=== PATIENT | female | born 1950 | race Caucasian/White ===

== ENCOUNTER → 2023-10-20 11:07 | Outpatient (REF) | payer MEDICARE, OTHER, SELFPAY ==
[2023-10-20 15:21] LABS: ALT (SGPT) 32 U/L (0-35); AST (SGOT) 42 U/L (14-36); Albumin 4.8 g/dl (3.5-5.0); Alkaline Phosphatase 79 U/L (38-126); Blood Urea Nitrogen 17 mg/dl (7-17); Calcium 10.1 mg/dl (8.4-10.2); Carbon Dioxide 25 mmol/L (22-30); Chloride 100 mmol/L (98-107); Glucose 82 mg/dl (70-99); Potassium 4.4 mmol/L (3.5-5.1); Sodium 138 mmol/L (135-145); Total Bilirubin 0.8 mg/dl (0.2-1.3); Total Protein 7.7 g/dl (6.3-8.2); eGFR > 60.00
== END ==
LOC: HWLAB 11:07
PROVIDERS: ATTENDING PHYSICIAN Internal Medicine Cardiovascular Disease; FAMILY PHYSICIAN Family Medicine
DX: I50.32 Chronic diastolic (congestive) heart failure (principal)
CPT/HCPCS: 36415; 80053

== ENCOUNTER → 2024-03-27 12:58 | Outpatient (REF) | payer MEDICARE, OTHER, SELFPAY | LOC: RAD 12:58 | PROVIDERS: ATTENDING PHYSICIAN Physician Assistant Medical; FAMILY PHYSICIAN Family Medicine | DX: J20.9 Acute bronchitis, unspecified (principal); R05.1 Acute cough | CPT/HCPCS: 71046 ==

== ENCOUNTER → 2024-05-17 08:48 | Outpatient (REF) | payer MEDICARE, OTHER, SELFPAY ==
[2024-05-17 12:32] LABS: ALT (SGPT) 38 U/L (0-35); AST (SGOT) 51 U/L (14-36); Albumin 4.8 g/dl (3.5-5.0); Alkaline Phosphatase 70 U/L (38-126); Blood Urea Nitrogen 20 mg/dl (7-17); Carbon Dioxide 27 mmol/L (22-30); Chloride 101 mmol/L (98-107); Glucose 94 mg/dl (70-99); HDL Cholesterol 94 mg/dl; LDL Cholesterol, Calculated 61 mg/dl; Potassium 4.6 mmol/L (3.5-5.1); Sodium 140 mmol/L (135-145); Total Cholesterol 169 mg/dl (50-199); Total Protein 7.4 g/dl (6.3-8.2); Triglyceride 74 mg/dl (10-149); Very Low Density Lipoprotein 14 mg/dl (0-30); eGFR > 60.00
== END ==
LOC: HWLAB 08:48
PROVIDERS: ATTENDING PHYSICIAN Internal Medicine Cardiovascular Disease; FAMILY PHYSICIAN Family Medicine
DX: I50.32 Chronic diastolic (congestive) heart failure (principal); Z95.5 Presence of coronary angioplasty implant and graft
CPT/HCPCS: 36415; 80053; 80061

== ENCOUNTER → 2024-08-03 09:43 | Outpatient (REF) | payer MEDICARE, OTHER, SELFPAY ==
[2024-08-03 14:05] LABS: ALT (SGPT) 31 U/L (0-35); Albumin 4.6 g/dl (3.5-5.0); Alkaline Phosphatase 71 U/L (38-126); Blood Urea Nitrogen 15 mg/dl (7-17); Calcium 9.9 mg/dl (8.4-10.2); Carbon Dioxide 26 mmol/L (22-30); Chloride 102 mmol/L (98-107); Glucose 92 mg/dl (70-99); HDL Cholesterol 92 mg/dl; LDL Cholesterol, Calculated 50 mg/dl; Potassium 4.2 mmol/L (3.5-5.1); Sodium 141 mmol/L (135-145); Total Bilirubin 0.8 mg/dl (0.2-1.3); Total Cholesterol 165 mg/dl (50-199); Total Protein 7.2 g/dl (6.3-8.2); Triglyceride 118 mg/dl (10-149); Very Low Density Lipoprotein 23 mg/dl (0-30); eGFR > 60.00
[2024-08-03 16:58] LABS: AST (SGOT) 35 U/L (14-36)
== END ==
LOC: HWLAB 09:43
PROVIDERS: ATTENDING PHYSICIAN Internal Medicine Cardiovascular Disease; FAMILY PHYSICIAN Family Medicine
DX: I50.32 Chronic diastolic (congestive) heart failure (principal)
CPT/HCPCS: 36415; 80053; 80061

== ENCOUNTER → 2024-10-11 10:17 | Outpatient (REF) | payer MEDICARE, OTHER, SELFPAY | LOC: HWRCS 10:17 | PROVIDERS: ATTENDING PHYSICIAN Internal Medicine Cardiovascular Disease; FAMILY PHYSICIAN Family Medicine | DX: I50.32 Chronic diastolic (congestive) heart failure (principal) | CPT/HCPCS: 93306 ==

== ENCOUNTER → 2025-05-22 12:33 | Outpatient (REF) | payer MEDICARE, OTHER, SELFPAY | LOC: HWWDC 12:33 | PROVIDERS: ATTENDING PHYSICIAN Obstetrics & Gynecology Gynecology; FAMILY PHYSICIAN Family Medicine | DX: Z12.31 Encounter for screening mammogram for malignant neoplasm of breast (principal) | CPT/HCPCS: 77063; 77067 ==

== ENCOUNTER → 2025-05-24 08:35 | Outpatient (REF) | payer MEDICARE, OTHER, SELFPAY ==
[2025-05-24 09:59] LABS: Hematocrit 43.5 % (37.0-47.0); Hemoglobin 15.1 g/dL (12.0-16.0); Mean Corp Hgb Conc. 34.7 g/dL (33.0-37.0); Mean Corpuscular Volume 96.5 fL (81.0-99.0); Nucleated Red Blood Cells % 0 %; Platelet Count 327 10^3/uL (130-400); Red Cell Dist. Width 13.1 % (11.5-14.5)
[2025-05-24 10:17] LABS: AST (SGOT) 39 U/L (14-36); Albumin 4.8 g/dl (3.5-5.0); Alkaline Phosphatase 66 U/L (38-126); Blood Urea Nitrogen 13 mg/dl (7-17); Carbon Dioxide 27 mmol/L (22-30); Chloride 104 mmol/L (98-107); Glucose 91 mg/dl (70-99); Potassium 4.1 mmol/L (3.5-5.1); Sodium 136 mmol/L (135-145); Total Protein 7.7 g/dl (6.3-8.2); eGFR > 60.00
[2025-05-24 10:27] LABS: ALT (SGPT) 29 U/L (0-35); Calcium 9.9 mg/dl (8.4-10.2)
== END ==
LOC: HWLAB 08:35
PROVIDERS: ATTENDING PHYSICIAN Obstetrics & Gynecology; FAMILY PHYSICIAN Family Medicine
DX: N90.1 Moderate vulvar dysplasia (principal)
CPT/HCPCS: 36415; 80053; 85025; 86900; 86901